=== PATIENT | female | born 1950 | race Caucasian/White ===

== ENCOUNTER → 2017-05-07 | Day surgery (SDC) | payer OTHER ==
[~2017-05-07] MED LIST: ACETAMINOPHEN/HYDROcodone 325 MG/5 MG TAB ONE; ALL220TA PO; APREPITANT 40 MG CAP ONE; BUPIVACAINE/EPINEPHRINE 0.5% PF 30 ML VIAL ONE; CALC600T34 PO; CEPH500C3 PO; DARV PO; LACTATED RINGER'S 1000 ML INJ 1,000 ML ONE; MIDAZOLAM HCL 2 MG/2 ML VIAL ONE; ONDANSETRON HCL 4 MG/2 ML VIAL IV PUSH ONE; PROPOFOL 200 MG/20 ML AMP IV ONE; TAB-TAB PO; TYLE500T PO; ceFAZolin 2 GM PREMIX 50 ML ONE; ceFAZolin INJ 1,000 MG VIAL ONE
--- NOTE | 2017-05-09 13:55 | MP ---
cc: LIDYA CARBAJAL M.D. DATE OF SURGERY: 05/09/2017. PREOPERATIVE DIAGNOSIS: Left knee medial and lateral meniscus tear. POSTOPERATIVE DIAGNOSES Left knee medial and lateral meniscus tear. OPERATIVE PROCEDURE PERFORMED: Left knee arthroscopic partial medial and lateral meniscectomy. SURGEON: Dr. Lidya Carbajal ANESTHESIA: General. ESTIMATED BLOOD LOSS: Less than 10 cc. TOURNIQUET TIME: Zero minutes. COMPLICATIONS: None. JUSTIFICATION FOR THE PROCEDURE: This patient is a 56-year-old female who injured the left knee. She had pain and swelling. Her symptoms were related to her above-named condition. She has failed conservative treatment. Clinical exam as well as MRI confirmed the above-named findings. The patient was counseled as to the risks, benefits and alternatives of the above-named proposed surgical procedure. She did wish to proceed with surgery. DESCRIPTION OF THE PROCEDURE IN DETAIL: A written consent was obtained. The patient was identified by name and taken to the operating room and placed supine on the operating room table. General anesthesia was administered as well as 1 gram of IV Ancef. The left thigh was carefully placed in a well-padded leg langston. The left lower extremity was prepped and draped using as isopropyl alcohol, Hibiclens solution and DuraPrep solution. After a time-out was performed, the standard medial and lateral parapatellar arthroscopic portals were established. The patellofemoral joint revealed mild grade 2 chondromalacia. The medial compartment revealed a large complex tear of the posterior horn of the medial meniscus. An arthroscopic biter followed by an arthroscopic shaver was introduced into the medial compartment to perform a partial medial meniscectomy. The meniscal rim was probed and it was stable. Mild grade 2 chondromalacia of the medial femoral condyle was noted. The intercondylar notch as well as the anterior and posterior cruciate ligaments were intact. The lateral compartment did reveal a displaced anterolateral meniscus tear with unstable meniscal tissue on probing. An arthroscopic shaver was introduced into the lateral compartment to perform a partial lateral meniscectomy. The meniscal rim was again noted to be stable. At the conclusion of the surgical procedure, 30 mL of 0.5% Marcaine with epinephrine was injected into the knee joint. The arthroscopic portals were closed with 3-0 Prolene suture. Sterile dressings were applied. The patient tolerated the procedure well. No intraoperative complications were noted. MD KYE Hernandez/CLARIBEL /12:03 PM /1:51 PM
== END | disposition home or self-care (01) ==
LOC: ESDC 10:03
PROVIDERS: ATTEND Orthopaedic Surgery Sports Medicine
DX: S83.232A Complex tear of medial meniscus, current injury, left knee, initial encounter (principal); S83.282A Other tear of lateral meniscus, current injury, left knee, initial encounter
CPT/HCPCS: 01400; 29880; J0690; J2250; J2405; J3010; J7120; J8501

== ENCOUNTER 2018-09-13 09:35 | Inpatient (IN) ==
--- NOTE | 2018-09-12 18:19 | MH ---
cc: Jaycob Jasso MD DATE OF ADMISSION: 09/13/2018 ADMITTING DIAGNOSIS: Osteoarthritis of the left knee. HISTORY OF PRESENT ILLNESS: The patient is a 67-year-old white female who has experienced pain of her left knee of almost 2 years' duration. The onset of her symptoms was related to a fall with blunt trauma to the knee occurring but the patient is able to arise and ambulate thereafter. She was later evaluated in the emergency room at [facility] where an x-ray examination was completed and apparently no acute bony abnormality identified. 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 She later underwent an orthopedic evaluation that included an MRI scan of her left knee that was completed in March of this past year, which apparently identified impressive bony edema of the medial tibial plateau as well as a complex tear involving the body and posterior horn of the medial meniscus. There was a grade 2 sprain of the anterior cruciate ligament and chondromalacia patellae. The patient was initially treated with a cortisone injection that did not afford her any appreciable benefit and, in May of this past year, she underwent arthroscopic surgery as completed by Dr. Miguel Patiño for which she was unable to be more specific with regard to the findings at surgery. She completed an extensive course of physical therapy thereafter without any improvement of her symptoms and later completed a course of viscosupplementation without benefit. She was seen in followup disposition by Dr. Patiño and apparently was advised to consider a total knee arthroplasty as the next alternative to management. She later underwent a second opinion evaluation with the undersigned physician in December of this year and at that time reported that she had been taking meloxicam 7.5 mg daily as part of her continued management. Her x-ray studies at that time revealed obvious degenerative changes with near [id number] apposition about the medial compartment with an associated varus deformity of almost 10 degrees magnitude. Findings and treatment options were reviewed with the patient at that time. The pros and cons of continuing with conservative management versus operative intervention involving a total knee arthroplasty were outlined in detail. Emphasis was made regarding the fact that the decision to proceed with surgery would be left entirely to the patient's discretion. The patient felt that she had exhausted all modes of conservative treatment and given the progressive nature of her pain, felt that she was ready to proceed accordingly. In compliance with her wishes, she has subsequently been scheduled for admission at this time in order that the above be accomplished. PAST MEDICAL HISTORY, HOSPITALIZATIONS AND SURGERIES: In addition to the arthroscopic procedure as described have included surgical stabilization of a left wrist and right proximal humerus fracture, insertion of a bladder stimulator, colonoscopy and umbilical herniorrhaphy. The patient denies active medical illnesses. MEDICATIONS: She is taking naproxen on a p.r.n. basis. ALLERGIES: SHE DENIES ANY KNOWN DRUG ALLERGIES. REVIEW OF SYSTEMS: She wears glasses for reading purposes. Denies headache, seizure or syncope. No sinus congestion or epistaxis. Diminished auditory acuity. No tinnitus. Complete upper dentures. No dysphagia. Denies cough, shortness of breath, upper respiratory infection, pneumonia or tuberculosis. No angina or heart disease. Her appetite is good. Bowel movements are regular. No hepatitis, gallbladder disease, ulcers or hemorrhoids. No urinary tract infection. No kidney stones. Fractures as described. No psychiatric illness. Her remaining review of systems is unremarkable and noncontributory. FAMILY HISTORY: 45 years. is 66 years of age and in reasonably good health. Two sons and 1 daughter, all described as being in good health. Family history is positive for heart disease and skin cancer. SOCIAL HISTORY: The patient completed a high school education. She has been retired for the past 2 months, having been previously employed as a sql server developer. She denies active use of tobacco. Ethanol consumption in the form of an occasional glass of wine. PHYSICAL EXAMINATION: VITAL SIGNS: Height 5 feet 1 inch, weight 194 pounds. GENERAL: An alert, oriented, responsive 66-year-old white female who sits quietly upon the examination table, in no obvious distress. HEAD, EARS, EYES, NOSE AND THROAT: Pupils are equally round and reactive to light. Extraocular movements full. Sclerae are clear. External nares clear. External auditory canals clear. Edentulous in the maxillary distribution. Mucous membranes pink and moist. Pharynx clear. NECK: Supple. Active range of motion with no significant pain. Carotid pulses palpable bilaterally. Trachea midline. Thyroid without enlargement. LUNGS: Clear to auscultation and percussion. BACK: No CVA tenderness. No discomfort throughout the dorsal lumbar spine. HEART: Regular rate and rhythm. No murmur or gallop. ABDOMEN: Soft, nontender. Bowel sounds present. PELVIC: Per primary care physician. EXTREMITIES: Left knee, there is a fullness about the knee consistent with redundancy of soft tissue and medial joint line tenderness without palpable deformity. Apprehension and compression sign negative. Limited and guarded mobility in the 100-degree range of flexion with pain at the extreme of motion. No appreciable crepitation. No collateral ligamentous laxity. Adolph test and drawer sign negative. Pivot shift and Galileo sign positive for medial compartment pain. Straight leg raising unremarkable at 80 degrees. Mild antalgic gait. NEUROLOGIC: Cranial nerves 2-12 grossly intact. IMPRESSION: Osteoarthritis, left knee. PLAN: Left total knee arthroplasty. The nature of the planned surgical procedure, the potential complications and risks associated, the expectations of surgery and the consent form were thoroughly reviewed with the patient prior to admission to the hospital. Anu has indicated her full understanding regarding all of the above and given consent to proceed with treatment as outlined. Medical evaluation and clearance for surgery has been completed by her primary care physician, Dr. Pretty. MD MINDY Murray/juan j , 05:16 PM , 05:29 PM
[~2018-09-13 09:35] MED LIST changes: -ACETAMINOPHEN/HYDROcodone 325 MG/5 MG TAB ONE; -ALL220TA PO; -APREPITANT 40 MG CAP ONE; -BUPIVACAINE/EPINEPHRINE 0.5% PF 30 ML VIAL ONE; -CALC600T34 PO; -CEPH500C3 PO; -DARV PO; -LACTATED RINGER'S 1000 ML INJ 1,000 ML ONE; -MIDAZOLAM HCL 2 MG/2 ML VIAL ONE; -ONDANSETRON HCL 4 MG/2 ML VIAL IV PUSH ONE; -PROPOFOL 200 MG/20 ML AMP IV ONE; -TAB-TAB PO; -TYLE500T PO; -ceFAZolin 2 GM PREMIX 50 ML ONE; +ceFAZolin 2 GM Premix Inj 2 GM/50 ML PIGGYBACK IV.SIG ONE; -ceFAZolin INJ 1,000 MG VIAL ONE
[2018-09-13] MEDS ORDERED: Tranexamic Acid Inj 1,000 MG/10 ML Ampul ONE (10:23)
[2018-09-13] MEDS ORDERED: Sodium Chlor 0.9% Inj 73.07 ML, Ropivacaine 0.5% PF Inj 24.63 ML, Ketorolac Inj 30 MG, ... P-ARTICULR SCH ×5 (10:30)
[2018-09-13] MEDS ORDERED: Chlorhexidine Gluconate 2% 1 Pack (2 Cloths) TOPICAL ONE (10:32)
[2018-09-13] MEDS ORDERED: Metoprolol Tartrate 25 MG Tablet PO ONE (10:32)
[2018-09-13] MEDS ORDERED: Lidocaine PF 1% Inj 5 ML Syringe OTHER ONE (10:35)
[2018-09-13] MEDS ORDERED: hydrALAZINE HCl Inj 20 MG/ML Vial IV.PUSH ONE (10:35)
[2018-09-13] MEDS ORDERED: Neostigmine Inj 5 MG/5 ML Syringe IV.PUSH ONE (10:35)
[2018-09-13] MEDS ORDERED: Glycopyrrolate Inj 1 MG/5 ML Syringe IV.PUSH ONE (10:35)
[2018-09-13] MEDS ORDERED: Sodium Chlor 0.9% Inj 500 ML IV.SIG SCH (11:00)
[2018-09-13] MEDS ORDERED: KETOROLAC I-PLEURAL SCH ×4 (11:00)
[2018-09-13] MEDS ORDERED: Tranexamic Acid Inj 1,000 MG in Sodium Chlor 0.9% Inj 100 ML IV.SIG SCH ×2 (11:00→13:27)
[2018-09-13] MEDS ORDERED: SODIUM CHLOR 0.9% I-PLEURAL SCH ×4 (11:00)
[2018-09-13] MEDS ORDERED: [UNRECOGNIZED DRUG - OTHER] I-PLEURAL SCH ×4 (11:00)
[2018-09-13] MEDS ORDERED: ROPIVACAINE 0.5% I-PLEURAL SCH ×4 (11:00)
[2018-09-13] MEDS ORDERED: ceFAZolin 2 GM Premix Inj 2 GM/50 ML PIGGYBACK IV.SIG SCH (11:00)
[2018-09-13] MEDS ORDERED: Bupivacaine PF 0.5% Inj 10 ML Vial ONE (12:19)
[2018-09-13] MEDS ORDERED: Zolpidem Tartrate 5 MG Tablet PO PRN (12:54)
[2018-09-13] MEDS ORDERED: Naloxone Inj 0.4 MG/ML Vial IV.PUSH PRN (12:54)
[2018-09-13] MEDS ORDERED: Tranexamic Acid Inj 1,000 MG in Sodium Chlor 0.9% Inj 100 ML IV.SIG ONE (12:54)
[2018-09-13] MEDS ORDERED: Morphine Inj 4 MG/ML Vial IV.PUSH PRN (12:54)
[2018-09-13] MEDS ORDERED: Aluminum/Magnesium/Simethacone Susp 30 ML UDC PO PRN (12:54)
[2018-09-13] MEDS ORDERED: Acetaminophen 325 MG Tablet PO PRN (12:54)
[2018-09-13] MEDS ORDERED: Bisacodyl 10 MG Supp RECTAL PRN (12:54)
[2018-09-13] MEDS ORDERED: Morphine Inj 30 MG/30 ML PCA.VIAL PCA PRN (12:54)
[2018-09-13] MEDS ORDERED: Post-op Orders (for Pharmacy) OTHER STA (13:00)
[2018-09-13] MEDS ORDERED: fentaNYL Citrate Inj 100 MCG/2 ML Ampul ONE (13:04)
[2018-09-13] MEDS ORDERED: *Meperidine Inj 25 MG/ML Vial PERIprocedural Use ONLY ONE (13:07)
[2018-09-13] MEDS ORDERED: *Ondansetron Inj 4 MG/2 ML Vial PERIprocedural Use ONLY ONE (13:11)
[2018-09-13] MEDS ORDERED: Morphine Inj 30 MG/30 ML PCA.VIAL PCA ONE (13:15)
--- NOTE | 2018-09-13 13:29 | MP ---
cc: Jaycob Jasso MD DATE OF OPERATION: 09/13/2018 PREOPERATIVE DIAGNOSIS: Osteoarthritis of the left knee. POSTOPERATIVE DIAGNOSIS: Osteoarthritis of the left knee. PROCEDURE PERFORMED: Left total knee arthroplasty. SURGEON: Jaycob Jasso MD ANESTHESIA: General endotracheal. INDICATIONS: A 67-year-old white female with a 2-year history of left knee pain following a fall with blunt trauma to her knee having occurred. She was later evaluated in the emergency room of [facility] where x-ray examination apparently was unremarkable for any acute bony abnormality. 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 She later underwent orthopedic evaluation, which included an MRI scan of her left knee that was completed in March of this past year and apparently identified impressive bony edema about the medial tibial plateau, as well as a complex tear involving the body and posterior horn of the medial meniscus, a grade 2 sprain of the anterior and cruciate ligament and chondromalacia patella. The patient was initially treated with cortisone injections and unfortunately did not afford her any appreciable benefit and, in May of this past year, she underwent arthroscopic surgery as completed by Dr. Miguel Patiño for which she was unable to appreciate any significant improvement of her symptoms. She carried through an extensive course of physical therapy thereafter without any additional improvement being appreciated and was later treated with a course of viscosupplementation without benefit. She was seen in followup disposition by Dr. Patiño and apparently was advised to consider total knee arthroplasty as the next alternative to management. She later underwent a second opinion evaluation with the undersigned physician in December of this year and at that time reported she had been taking meloxicam 7.5 mg daily for continued pain management. Her x-ray studies revealed obvious degenerative changes with near [id number] apposition about the medial compartment, associated with a varus deformity of almost 10 degrees magnitude. Findings and treatment options were reviewed. The pros and cons of continuing with conservative management versus operative intervention involving total knee arthroplasty were outlined in detail. Emphasis was made regarding the fact that the decision to proceed with surgery would be left entirely to the patient's discretion. The patient felt that she had exhausted all modes of conservative treatment and given the progressive nature of her pain indicated her desire to proceed accordingly and in compliance with her wishes, she was scheduled for admission in order that the above be accomplished. FORMAT: Following the induction of satisfactory general anesthesia by endotracheal intubation as completed per the Department of Anesthesia, a tourniquet was established around the proximal portion of the left lower extremity. The extremity proper was isolated with a U-drape, thereafter being prepped with Betadine solution and draped into a sterile field in a routine manner. Prior to initiation of the actual procedure, the standard timeout protocol was completed, all parameters were appropriately addressed and confirmed by operating room personnel. The extremity was elevated for approximately 1 minute and the tourniquet, thus inflated to 250 mmHg pressure. A sharp skin incision was initiated midline over the anterior aspect of the knee and developed through underlying subcutaneous tissue with hemostasis maintained by electrocautery. By deepening dissection, the anterior capsule was exposed. A medial capsulotomy completed and the patella subluxed in a lateral orientation. Examination of the joint space revealed significant degenerative changes of a tricompartmental nature, but definitely being most pronounced throughout the medial compartment where there was complete erosion of articular cartilage and underlying subchondral bone exposed. Pronounced attenuation of the anterior cruciate ligament with no more than minimal residual strands of the ligament structure being appreciated. The articular surface of the patella was resected with power saw. The 3-holed guide was utilized for establishing post-holes. Medial and lateral meniscus structures were sharply excised as was the remnant of the anterior cruciate ligament. A centering hole was placed in the distal aspect of the femur, allowing positioning of the intramedullary guide. The distal femoral cutting jig was attached and the distal femur resected. AP measurement noted 67.5 mm sizing to be appropriate. The matching cutting block was positioned. Anterior, posterior and chamfer cuts were completed. Tibial plateau was thereafter subluxed in an anterior orientation allowing positioning of the extramedullary guide. The tibial plateau was resected and measured with 71 mm sizing determined to be satisfactory. A trial reduction followed utilizing a 67.5 mm anatomic femoral component, a 71 mm tibial base with 10 mm bearing inserts trialed. The knee was readily brought to full extension. There was no laxity with varus and valgus stress at both 0 and 90 degrees flexed posture. Orientation was confirmed as appropriate with measurement of the pelvic guide through the mechanical access of the knee. A trial reduction completed thereafter, utilizing a 31 mm patellar button. Again, good tracking noted with no tendency towards subluxation. All trial components being removed, the remaining portion of the proximal tibia was prepared for insertion of the permanent component. The joint space was thoroughly lavaged with pulsating antibiotic solution, hemostasis maintained by electrocautery. An autogenous bone plug was inserted into the distal femoral guide hole and thereafter a preparation of Biomet bone cement was utilized in inserting knee components in a sequential fashion, which included a 71 mm fixed cruciate tibial plate, to which a 10 mm Vanguard tibial bearing insert was secured with locking glover. The 67.5 mm right Vanguard femoral component was firmly seated onto the distal femur, excess cement being removed. The knee was brought to full extension and thereafter, the 31 mm standard 3 post-patellar button was attached and maintained in place with patellar clamp while cement hardening was completed. Final range of motion assessment noted good tracking stability throughout the knee. Irrigation was repeated with hemostasis maintained. SureTrans drain tubes were through superior stab wounds. The capsule was repaired with 0 Vicryl suture. The remaining portion of the wound was closed in layers in the routine manner, skin margins being reapproximated with a running subcuticular 3-0 Vicryl suture over which Steri-Strips were applied. Xeroform gauze and a bulky dry sterile dressing were placed. Tourniquet deflated after 60 minutes of tourniquet time. Anesthesia discontinued. The patient thus transferred to a hospital bed and returned to the recovery room in satisfactory condition, having tolerated her operative procedure well. Estimated blood loss was approximately 100 mL as determined per anesthesia. All implants were of the Biomet safety engineer pressure vessels. Jaycob Jasso MD NBS/ct , 12:48 PM , 01:01 PM
[2018-09-13] MEDS ORDERED: *Promethazine Inj 25 MG/ML Vial PERIprocedural use ONLY ONE (14:01)
--- NOTE | 2018-09-13 15:03 | XR ---
EXAM DATE: 09/13/2018 12:50 PM EDT AGE/SEX: 67 years / Female INDICATIONS: Post op left total knee replacement. CLINICAL DATA: This is the patient's initial encounter. Patient reports that signs and symptoms have been present for 1 day and indicates a pain score of 7/10. MEDICAL/SURGICAL HISTORY: None. None. COMPARISON: No prior exams available for comparison. FINDINGS: Left total knee arthroplasty is present. Hardware is intact. Alignment anatomic. Surgical drains are present. CONCLUSION: Satisfactory appearance post left TKA Electronically signed by: Gallo Garcia MD 09/13/2018 3:02 PM EDT
--- NOTE | 2018-09-13 15:09 | P.CON ---
History of Present Illness Consult date: 09/13/18 Requesting Physician: Jaycob Jasso Reason for Consult: Medical management Primary Care Provider: Gerri Pretty Chief Complaint: Osteoarthritis of the Left Knee History of Present Illness: This is a pleasant 67 y/o Female with Severe left knee OA, worsening activities of daily living despite Medical management, today brought in for Programmed procedure Left total knee arthroplasty, by doctor Rajendra Jasso, her first symptoms started as status post fall with blunt trauma, MRI with abnormal changes on her Left knee, discussed with patient and nurse, orthotics in place at this time. Review of Systems All other systems reviewed negative except as stated in HPI PMFSH - History History Provided By: Patient - Medical History Medical History: Medical History (Last Updated 09/13/18 @ 10:13 by Radha Redd) Arthritis, rheumatoid Overactive bladder - Surgical History Surgical History: Surgical History (Last Updated 09/13/18 @ 10:13 by Radha Redd) H/O colonoscopy H/O umbilical hernia repair History of surgery on upper extremity S/P wrist surgery - Family History Family History: Family History (Last Updated 09/13/18 @ 16:15 by Duke Matson MD) Other CAD (coronary artery disease) - Tobacco History Second Hand Smoke Exposure: No Smoking Status: Never smoker - Alcohol History How Often Do You Have a Drink Containing Alcohol: Never - Substance Use History Substance History: No History of Abuse - Travel History Recent Travel in the [place] Within the Last 8 Weeks: No Recent Travel Out of the Country Within the Last 8 Weeks: No Medications and Allergies Active Medications: Active Medications Acetaminophen (Tylenol) 650 mg PO Q6H PRN PRN Reason: FEVER > 102 F Hydrocodone Bitart/Acetaminophen (Evans 5/325) 1 tab PO Q4H PRN PRN Reason: PAIN LESS THAN 5 ON SCALE Hydrocodone Bitart/Acetaminophen (Evans 5/325) 2 tab PO Q6H PRN PRN Reason: PAIN SCALE 5 TO 10 Al Hydrox/Mg Hydrox/Simethicone (Mag-Al Plus Susp Liq) 30 ml PO Q6H PRN PRN Reason: INDIGESTION Al Hydroxide/Mg Hydroxide (Milk Of Magnesia Liq) 30 ml PO BID PRN PRN Reason: Mild Constipation Aspirin (Aspirin) 325 mg PO BID MIKE Bisacodyl (Dulcolax Supp) 10 mg RECTAL DAILY PRN PRN Reason: SEVERE CONSITIPATION Sodium Chloride 23.07 ml/Ropivacaine 24.63 ml/Ketorolac Tromethamine 30 mg/ Epinephrine HCl 0.5 mg/Clonidine HCl 80 mcg 0 ml I-PLEURAL ONCE [facility] Last Admin: 09/13/18 11:24 Dose: 50 bag Tranexamic Acid 1,000 mg/ (Sodium Chloride) 110 mls @ 200 mls/hr IV.SIG ONCE [facility] Stop: 09/14/18 10:59 Last Infusion: 09/13/18 11:25 Dose: Infused Tranexamic Acid 1,000 mg/ (Sodium Chloride) 110 mls @ 200 mls/hr IV.SIG ONCE [facility] Stop: 09/14/18 13:26 Last Admin: 09/13/18 13:40 Dose: 200 mls/hr Sodium Chloride (Ns Inj) 500 mls @ 30 mls/hr IV.SIG .Q10H [facility] Last Admin: 09/13/18 10:35 Dose: Not Given Cefazolin Sodium 1,000 mg/ (Sodium Chloride) 100 mls @ 200 mls/hr IV.SIG Q6H [facility] Stop: 09/14/18 05:29 Morphine Sulfate (Morphine Inj) 30 mg in 30 mls @ 0 mls/hr INFORMATICA MDM ARCHITECT UNSCH PRN PRN Reason: per INFORMATICA MDM ARCHITECT parameters Stop: 09/14/18 13:00 Lactated Ringer's (Lr 1000 Ml Inj) 1,000 mls @ 80 mls/hr IV.CONT .[id number] [facility] Last Admin: 09/13/18 13:51 Dose: 80 mls/hr Lactulose (Lactulose Liq) 30 ml PO DAILY PRN PRN Reason: SEVERE CONSITIPATION Miscellaneous Information (Misc Nursing Information) 0 each OTHER UNSCH PRN PRN Reason: SEE DOSE INSTRUCTIONS Miscellaneous Information (Misc Nursing Information) 0 each OTHER UNSCH PRN PRN Reason: SEE LABEL COMMENTS Stop: 09/14/18 12:59 Morphine Sulfate (Morphine Inj) 2 mg IV.PUSH Q3H PRN PRN Reason: BREAKTHROUGH PAIN Naloxone HCl (Narcan Inj) 0.4 mg IV.PUSH PRN PRN PRN Reason: Resp rate < 10 Ondansetron HCl (Zofran Inj) 4 mg IV.PUSH Q6H PRN PRN Reason: NAUSEA OR VOMITING Povidone Iodine (Betadine 7.5% Scrub) 1 applicatio TOPICAL ONCE [facility] Stop: 09/17/18 10:59 Last Admin: 09/13/18 10:15 Dose: 1 applicatio Senna/Docusate Sodium (Alba-Colace) 1 tab PO BID [facility] Sennosides (Senokot) 17.2 mg PO BID PRN PRN Reason: Moderate Constipation Sodium Chloride (Ns Flush) 2 ml IV.FLUSH BID MIKE Sodium Chloride (Ns Flush) 2 ml IV.FLUSH PRN PRN PRN Reason: FLUSH AFTER USING IV ACCESS Zolpidem Tartrate (Ambien) 5 mg PO HS PRN PRN Reason: INSOMNIA Allergies Allergy/AdvReac Type Severity Reaction Status Date / Time No Known Allergies Allergy Unverified 09/13/18 10:16 Home Medications Medication Instructions Recorded Confirmed Type Mobic 7.5 mg PO BID 09/13/18 09/13/18 History naproxen sodium [Aleve] 220 mg PO BID PRN 09/13/18 09/13/18 History Physical Exam Vital signs: Vital Signs 09/13/18 10:18 Temperature 98.8 F Pulse Rate 69 Respiratory Rate 16 Blood Pressure 126/77 Pulse Oximetry 95 Intake & Output 09/12/18 09/13/18 09/13/18 18:59 06:59 18:59 Intake Total 800 / 800 Output Total 100 / 100 Balance 700 / 700 Weight 88.7 kg Intake: IV 260 / 260 Ofirmev Inj 1,000 mg In 100 ml 100 / 100 @ 0 mls/hr IV.SIG .STK-[facility] Rx#:[id number] Cyklokapron Inj 1,000 MG In NS 110 / 110 Inj 100 ML @ 200 mls/hr IV.SIG ONCE [facility] Rx#:[id number] Ancef 2 GM Premix Inj 2 gm In 50 / 50 50 ml @ 100 mls/hr IV.SIG INTELLIGENCE SENIOR SERGEANT [facility] Rx#:[id number] Anesthesia Amount 540 / 540 Output: Estimated Blood Loss 100 / 100 Other: Weight On Admission 88.7 kg Narrative: GENERAL: Obesity, well-developed patient, in no apparent distress. CARDIOVASCULAR: Regular rate and rhythm without murmurs, gallops, or rubs. RESPIRATORY: Clear to auscultation. Breath sounds equal bilaterally. No wheezes , rales, or rhonchi. GASTROINTESTINAL: Abdomen soft, non-tender, nondistended. Normal active bowel sounds MUSCULOSKELETAL: Extremities without clubbing, cyanosis, Orthotics on left leg. NEURO: Alert & Oriented x4 to person, place, time, situation. Moves all ext x4 Assessment and Plan - Plan 1. Severe OA of the Left Knee, status post Left total knee arthroplasty, by doctor Rajendra Jasso PT, dairy bar manager, Pain medicine management. 2. Obesity strongly recommended diet and exercise as outpatient DVT prophylaxis as per Orthopedic medicare contact specialist. Code Status: Full code. Discussed Condition With: patient and nurse. Discharge Planning: as per attending physician.
--- NOTE | 2018-09-13 16:54 | P.DCO ---
- Diagnosis (1) Degenerative joint disease of knee, left Status: Acute - Physical Therapy Order: Evaluate and treat, Improve ambulation, Strength and gait training - Home Health Nursing Order: Medical education, Wound care and dressing changes - Home Health Aide Order: To assist in: Bathing and personal care, model technician and meal prep - Twister Frame Tender Order: To evaluate: Living conditions/environment, Support services Order: To provide: Long range planning, Community services - Case Management Consult Yes - Certification I have seen patient Anu Machuca on 09/13/18. My clinical findings support the need for the requested home health care services because: Limited ability to care for self, High risk of falls I certify that my clinical findings support that this patient is homebound because: Post-op weakness, Unsteady gait/balance, Unsafe to leave home unassisted (1) Degenerative joint disease of knee, left Qualifiers: Osteoarthritis type: primary Qualified Code(s): M17.12 - Unilateral primary osteoarthritis, left knee
[2018-09-13] MEDS: Senna/Docusate Sodium 8.6/50 MG Tablet PO SCH (20:45)
[2018-09-13] MEDS: Aspirin 325 MG Tablet PO SCH (20:45)
[2018-09-14 07:04] LABS: Hematocrit 34.3 % (35.0-46.0); Hemoglobin 11.1 gm/dL (11.6-15.3)
[2018-09-14 07:33] LABS: Calcium 8.3 mg/dL (8.5-10.1); Carbon Dioxide 25.1 meq/L (21.0-32.0); Magnesium 2.1 mg/dL (1.5-2.5); Potassium 4.6 meq/L (3.5-5.1)
[2018-09-14] MEDS: Aspirin 325 MG Tablet PO SCH ×2 (08:47→22:19)
[2018-09-14] MEDS: Senna/Docusate Sodium 8.6/50 MG Tablet PO SCH ×2 (08:47→22:19)
--- NOTE | 2018-09-14 11:07 | P.PN ---
Subjective Interval history: This is a pleasant 67 y/o Female with Severe left knee OA, worsening activities of daily living despite Medical management, today brought in for Programmed procedure Left total knee arthroplasty, by doctor Rajendra Jasso, her first symptoms started as status post fall with blunt trauma, MRI with abnormal changes on her Left knee, discussed with patient and nurse, orthotics in place at this time. 09/14: Seen in her bedroom, stable no nausea, vomit or diarrhea, discussed with nurse seen slight increase in blood sugar probable stress related, to perform hemoglobin A1C may be followed by her primary care physician on discharge. Physical Exam Vital signs: Vital Signs 09/13/18 12:55 09/13/18 13:00 09/13/18 13:15 Temperature 97.2 F L Pulse Rate 98 H 95 H 97 H Respiratory Rate 20 20 17 Blood Pressure 169/76 H 173/79 H 150/67 H Pulse Oximetry 99 98 97 09/13/18 13:30 09/13/18 13:45 09/13/18 14:00 Temperature Pulse Rate 79 78 84 Respiratory Rate 15 17 17 Blood Pressure 131/62 115/59 L 105/51 L Pulse Oximetry 97 98 98 09/13/18 14:21 09/13/18 15:00 09/13/18 16:00 Temperature Pulse Rate 74 74 Respiratory Rate 18 18 14 Blood Pressure 101/54 L 110/55 L Pulse Oximetry 97 94 L 09/13/18 17:30 09/13/18 18:15 09/13/18 20:00 Temperature 96.3 F L 98 F 98.1 F Pulse Rate 72 75 67 Respiratory Rate 21 17 18 Blood Pressure 114/58 L 109/57 L 101/55 L Pulse Oximetry 94 L 92 L 93 L 09/14/18 00:00 09/14/18 04:00 09/14/18 08:00 Temperature 98.1 F 98.2 F 97.9 F Pulse Rate 62 68 64 Respiratory Rate 18 18 17 Blood Pressure 97/56 L 108/52 L 103/53 L Pulse Oximetry 94 L 95 95 Intake & Output 09/13/18 09/14/18 09/14/18 18:59 06:59 18:59 Intake Total 1529 / 1529 340 / 340 Output Total 201 / 201 40 / 40 Balance 1328 / 1328 300 / 300 Weight 88.7 kg 90.1 kg Intake: IV 689 / 689 100 / 100 LR 1000 mL Inj 1,000 ML @ 80 219 / 219 mls/hr IV.CONT .[id number] [facility] Rx# :[id number] Ofirmev Inj 1,000 mg In 100 ml 100 / 100 @ 0 mls/hr IV.SIG .STK-MED ONE Rx#:[id number] Cyklokapron Inj 1,000 MG In NS 220 / 220 Inj 100 ML @ 200 mls/hr IV.SIG ONCE [facility] Rx#:[id number] Ancef 2 GM Premix Inj 2 gm In 50 / 50 50 ml @ 100 mls/hr IV.SIG SENIOR LIBRARIAN [facility] Rx#:[id number] Ancef Inj 1,000 MG In NS Inj 100 / 100 100 / 100 100 ML @ 200 mls/hr IV.SIG Q6H [facility] Rx#:[id number] Oral 300 / 300 240 / 240 Anesthesia Amount 540 / 540 Output: Urine / Estimated Blood Loss 100 / 100 Wound Drainage 100 / 100 40 / 40 # 1 Left Knee 100 / 100 40 / 40 Other: # Voids 2 Date of Last Bowel Movement 09/13/18 09/13/18 Weight On Admission 88.7 kg Narrative: GENERAL: Obesity, well-developed patient, in no apparent distress. CARDIOVASCULAR: Regular rate and rhythm without murmurs, gallops, or rubs. RESPIRATORY: Clear to auscultation. Breath sounds equal bilaterally. No wheezes , rales, or rhonchi. GASTROINTESTINAL: Abdomen soft, non-tender, nondistended. Normal active bowel sounds MUSCULOSKELETAL: Extremities without clubbing, cyanosis, Orthotics on left leg. NEURO: Alert & Oriented x4 to person, place, time, situation. Moves all ext x4 Results - Labs CBC & Chem 7: 09/14/18 05:34 09/14/18 05:34 Laboratory Results - last 24 hr 09/13/18 09/14/18 09/14/18 10:10 05:34 05:34 Hgb 11.1 L Hct 34.3 L Sodium 137 Potassium 4.6 Chloride 104 Carbon Dioxide 25.1 Anion Gap 8 BUN 21 H Creatinine 0.67 Estimated GFR 87 L Random Glucose 131 H Calcium 8.3 L Magnesium 2.1 Blood Type Recheck Required Antibody Screen Negative - Imaging Impressions Knee X-Ray 09/13/18 12:50 CONCLUSION: Satisfactory appearance post left TKA - Procedures Left total knee arthroplasty, by doctor Rajendra Jasso, 09/13/18 Assessment and Plan - Plan 1. Severe OA of the Left Knee, status post Left total knee arthroplasty, by doctor Rajendra Jasso, PT, studio operations manager, Pain medicine management. stable no complaint today 2. Obesity strongly recommended diet and exercise as outpatient Vital signs stable, found slight increase in fasting blood sugar will need hemoglobin A1C. probable related to stress. DVT prophylaxis as per Orthopedic pharmaceutical sales specialist. Code Status: Full code. Discussed Condition With: patient and Nurse Miss Alvarenga Discharge Planning: Hospitalist clear for discharge.
[2018-09-14 19:02] VITALS: RESP 18
[2018-09-14 20:50] LABS: Hemoglobin A1c 6.2 % (4.3-6.0)
[2018-09-15] MEDS: Aspirin 325 MG Tablet PO SCH (09:13)
[2018-09-15] MEDS: Senna/Docusate Sodium 8.6/50 MG Tablet PO SCH (12:21)
--- NOTE | 2018-09-15 14:56 | MD ---
cc: Jaycob Jasso MD Physician,Primary Care DATE OF DISCHARGE: ADMITTING DIAGNOSIS: Osteoarthritis of the left knee. DISCHARGE DIAGNOSIS: Osteoarthritis of the left knee. HISTORY OF PRESENT ILLNESS: A 67-year-old white female with a 2-year history of progressive left knee pain as related to osteoarthritis. She has been treated conservatively in the past, which subsequently included arthroscopic surgery, but unfortunately did not provide her with the overall benefit she was looking for. She became progressively more symptomatic with pain and subsequent x-ray studies revealed [id number] apposition about the medial compartment associated with a varus deformity of 10 degrees magnitude. The patient had expressed her desire to proceed with a more definitive course of treatment for which total knee arthroplasty was recommended. The patient was in full agreement to [facility] and thus scheduled for admission at this time. For additional details with regard to her pertinent present history, interested parties would be directed to the details of her admitting history and physical documentation. PHYSICAL EXAMINATION: MUSCULOSKELETAL: Her physical examination at the time of admission revealed fullness of the left knee consistent with redundancy of soft tissue and medial joint line tenderness. Apprehension and compression sign negative. Limited mobility in the 100-degree range of flexion with pain at the extreme of motion. No crepitation. No collateral ligamentous laxity. Adolph test and drawer sign negative. Pivot shift and Galileo sign positive for medial compartment pain. Straight leg raising unremarkable at 80 degrees. Antalgic gait. HOSPITAL COURSE: Prior to admission the patient had undergone medical evaluation and clearance for surgery as completed by her primary care physician, Dr. Pretty. She was taken to the operating room on 13 September 2018 and on that date underwent a left total knee arthroplasty completed in an uncomplicated manner. The patient was noted to have tolerated her operative procedure well. Her postoperative course stable thereafter. Hemoglobin and hematocrit assessment postoperatively 11.1 and 34.3 respectively. The patient was progressively mobilized under the guidance of physical therapy being permitted weightbearing to tolerance about the left lower extremity. Followup examination of her surgical wound noted to be intact, healing favorably with no evidence of infection. Medical followup per the hospitalist service. DVT prophylaxis initiated. Bridge Maintenance Worker consulted to assist with discharge planning. The patient indicated her desire for rehab placement, which was to be facilitated through the assistance of the Social Service department. Plans were finalized in this regard and pending medical clearance, she was scheduled for transfer on the second postoperative day, at which time she was noted to be making favorable progress with regard to her initial rehabilitation program. She was scheduled to be seen in office followup in approximately 4 weeks. CONDITION AT THE TIME OF DISCHARGE: Stable. PROGNOSIS: Favorable. DISCHARGE MEDICATIONS: Include: 1. Hydrocodone 5/325; #30. 2. Aspirin 325 mg 1 tab twice daily for 3 weeks, #40. Jaycob Jasso MD NBS/ld , 06:54 AM , 07:00 AM
[2018-09-15 16:18] VITALS: BP 144/61; PULSE 78; TEMP 99.8; O2SAT 96
== END 2018-09-15 16:53 ==
LOC: HSDI 09:35 → N06 17:44
PROVIDERS: ADMIT Orthopaedic Surgery; ATTEND Orthopaedic Surgery